=== PATIENT | male | born 1950 | race African-American/Black ===

== ENCOUNTER 2016-12-15 08:00 | Emergency (ER) | payer MEDICARE, BC ==
--- NOTE | 2016-12-15 08:23 | ERNOTE ---
Chest Pain/Cardiac HPI Date of Service: 12/15/16 Chief Complaint: Chest Pain Time Seen by Provider: 12/15/16 08:13 Source: patient Immunizations: IMMUNIZATION HX Immunizations Up to Date Yes History of Influenza Vaccine Yes Hx Pneumococcal Vaccination No Allergies/Adverse Reactions: Allergies No Known Allergies Allergy (Verified 12/15/16 08:08) Home Medications: HOME MEDICATIONS Calcium Acetate [Phoslo] 2,668 mg PO TID 10/27/15 [Last Taken Unknown] Clonidine HCl [Catapres] 0.3 mg PO BID 10/27/15 [Last Taken Unknown] Darbepoetin Bairon in Polysorbat [Aranesp] 25 mcg IV Q7D 10/27/15 [Last Taken Unknown] Amlodipine Besylate [Norvasc] 10 mg PO DAILY 06/17/16 [Last Taken Unknown] Clopidogrel Bisulfate [Plavix] 75 mg PO DAILY 12/15/16 [Last Taken Unknown] Narrative: CC = CHEST PAIN, ACHING , 6/10 TO RIGHT UPPER CENTRAL CHEST 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 HE THINKS IT IS FROM PROCEDURE HIS INSURANCE OFFICE MANAGER DID YESTERDAY AT [facility] WHERE HE HAD STUDY OF HIS GRAFT PATENCY BY A CATH THRU HIS RIGHT GROIN. NO SOB OR SWEATING. WHEN HE C/O CHEST DISCOMFORT THEY STOPPED HIS USUAL DIALYSIS AFTER 90 MINS AND CALLED EMS . HE DENIES HX OF HEART DISEASE OR DIABETES . SAYS HIS RENAL FAILURE WAS SECONDARY TO HYPERTENSION. FUIRTHER INFORMATION FROM THE PT . REVEALS HE THINKS HIS CHEST PAIN STARTED YESTERDAY AFTERNOON AFTER HE SAW DR SERNA IN [place] FOR THE ARTERIOGRAM OF HIS OLD RIGHT SIDED GRAFTS. HE DENIES KNOWN HEART OR LUNG DISEASE. Review of Systems - Review of Systems Constitutional: Present: See HPI Respiratory: Present: no symptoms reported Cardiology: Present: See HPI, chest pain Gastrointestinal/Abdominal: Present: no symptoms reported Genitourinary: Present: no symptoms reported Musculoskeletal: Present: no symptoms reported Skin: Present: no symptoms reported Neurological: Present: no symptoms reported Endocrine: Present: no symptoms reported Hematologic/Lymphatic: Present: no symptoms reported Psych: Present: no symptoms reported All Other Systems: All systems neg except as marked - Patient's Past Medical History Patient History - Medical: Renal Failure, Other Patient History - Cardiac/Respiratory: Hypertension Patient History - Cancer: No Hx of Cancer Patient History - Surgical Procedures: Other - THREE GRAFTS OVER THE PERIOD OF HIS DIALYSIS. Patient History - Other: None - Social History Living Situations: home Psych History: No pertinent hx Alcohol Use: none Drug Use: none - Immunizations Immunizations Up to Date: Yes Hx Pneumococcal Vaccination: No History of Influenza Vaccine: Yes Physical Exam - Physical Exam General Appearance: Present: wd/wn, alert, no apparent distress Respiratory: Present: no respiratory distress, normal breath sounds, no accessory muscle use, chest nontender, lungs clear Cardiovascular/Chest: Present: regular rate, rhythm, no murmur, normal peripheral pulses Gastrointestinal/Abdominal: Present: normal bowel sounds, nontender, nondistended, soft, no organomegaly Extremity Exam: Present: normal except - - RIGHT INGUINAL CATHETER SITE IS WELL HEALED WITH NO BLEEDING AND NO SITE OF BRUISING OR SWELLING. THE OLD DRESSING WAS REMOVED AND THERE WAS ONLY MINIMAL OLD BLOOD ON 2X2 OVER THE SITE. Neurological Exam: Present: alert, oriented, normal mood/affect Skin Exam: Present: normal color ED Progress - Date and Time Seen: Date and Time: 12/15/16 13:11 DISCUSSED PT WITH HIS SURGEON WHO DID HIS CATH YESTERDAY TO STUDY HIS GRAFT SITE AND HE SUGGESTED SINCE ALL ELSE WAS STABLE TO GET A CTA OF HIS CHEST TO SEE IF HE COULD HAVE A CLOT BREAK OFF TO THE LUNG. 12/15/16 15:55 CTA RESULTS WERE NEGATIVE FOR PULMONARY EMBOLUS OR OTHER ACUTE PROBLEM. HE IS NOTED TO HAVE TRACE BILATERAL PLEURAL EFFUSIONS AND MODERATE PERICARDIAL EFFUSION . - Vital Signs Vital Signs: Vital Signs 12/15/16 08:03 Temperature 36.8 C Pulse Rate 101 H Respiratory 23 H Rate Blood Pressure 85/62 O2 Sat by Pulse 97 Oximetry - Progress/Reassessment Chief Complaint: Chest Pain Plan - Plan Plan: I D/W HIS [facility] INSURANCE OFFICE MANAGER , DR BERRY, WHO SAYS HE CAN NOT ACCEPT PT TONIGHT HE IS NOT GOING TO BE AVAILABLE AFTER 1700 OR TOMORROW FOR DIALYSIS AND THAT NEAREST PLACE FOR HIS DIALYSIS TO BE DONE IS AT [facility]. I TALKED WITH DR MEDEIROS THERE WHO ACCEPTED PT. FOR ER TO ER TRANSFER. I EXPLAINED THIS TO THE PT. Departure - Departure Clinical Impression: Renal failure syndrome, Chest pain of uncertain etiology Disposition: [facility] Condition: Fair
[2016-12-15 08:30] LABS: Hematocrit 34.5 % (42.0-52.0); Hemoglobin 11.2 gm/dL (13.5-18.0); Mean Cell Volume 97.2 fl (78-100); Mean Corpuscular Hemoglobin 31.5 pg (27-31); Mean Corpuscular Hgb Conc 32.5 g/dl (32-36); Mean Platelet Volume 10.3 fl (6.0-9.5); Neutrophil # 5.9 K/mm3 (1.3-6.0); Neutrophil % 75.4 % (42-75.0); Platelet Count 169 K/mm3 (150-450); Red Blood Count 3.55 M/mm3 (4.7-6.0); Red Cell Distribution Width 15.8 % (11.5-14.0); White Blood Count 7.8 K/mm3 (4.0-10.5)
[2016-12-15 08:39] LABS: Prothrombin Time (Patient) 10.6 Seconds (9.4-11.4)
[2016-12-15 08:40] LABS: INR 1.02 INR (0.90-1.10); Partial Thrombolplastin Time 26.5 Seconds (24-32)
[2016-12-15 08:48] LABS: Albumin * 3.5 gm/dl (3.4-5.0); Anion Gap 14.7 mmol/L (6.8-13.8); BUN/Creatinine Ratio 4.8 (9.0-21.6); Bilirubin, Total 0.5 mg/dL (0.0-1.1); Calcium * 8.9 mg/dL (7.9-10.9); Carbon Dioxide 29.1 mmol/L (24-32.6); Potassium 5.8 mmol/L (3.4-4.6); Total Protein 7.6 gm/dL (6.2-8.2)
[2016-12-15 08:51] LABS: Troponin I 0.125 ng/ml (0.00-0.10)
--- OUTSIDE RECORDS SUMMARY | 2016-12-15 09:03 | XMS REPORT | Continuity of Care Document ---
:1950 Author Organization [facility] ([facility]) Address [address] [place] [address] Phone [phone] Care Team Providers Name Role Phone Provider, No-Primary Care Primary Care Provider Unavailable Source Comments This disclosure is being made pursuant to the Care Everywhere program, applicable federal and state laws, and may not contain all informaitonavailable regarding this patient.[facility] ([facility]) Active Allergies and Adverse Reactions No Active Allergies Current Medications Not on file Active Problems Problem Noted Date Other malaise and fatigue 12/10/2006 Fever 12/08/2006 Overview: problem dog warden replacement for go-live --MAL Other specified pre-operative examination 11/28/2005 End stage renal disease 11/28/2005 Social History Tobacco Use Types Packs/Day Years Used Date Never Assessed Last Filed Vital Signs Vital Sign Reading Time Taken Blood Pressure 113/67 12/12/2006 4:00 PM CDT Pulse 87 12/12/2006 4:00 PM CDT Temperature 36.1 C (96.98 F) 12/12/2006 4:00 PM CDT Respiratory Rate 18 12/12/2006 4:00 PM CDT Height 1.73 m (5' 8.11") 12/08/2006 5:06 PM CDT Weight 71.596 kg (157 lb 13.4 oz) 12/11/2006 8:00 PM CDT Body Mass Index 23.92 12/11/2006 8:00 PM CDT Oxygen Saturation - - Plan of Care Health Maintenance Due Date Last Done Comments Hepatitis B Vaccine (1 of 3 - Primary Series) 1950 Tdap Vaccine 1959 Lipid Disorder Screening 1966 Td Vaccine 1966 Colonoscopy 1998 Prostate Cancer Screening 1998 Zoster Vaccine 2008 Pneumococcal Vaccine (1 of 2 - PCV13) 2013 Influenza Vaccine: Seasonal (#1) 04/03/2016 HCV Screening Completed 12/08/2006 Results from Last 3 Months Not on file
[2016-12-15] MEDS ORDERED: ACETAMINOPHEN 325 MG TABLET PO ONE (13:46)
[2016-12-15] MEDS ORDERED: ACETAMINOPHEN 325 MG TABLET ONE (13:47)
[2016-12-15] MEDS ORDERED: ONDANSETRON HCL/PF 2 MG/ML VIAL IV ONE (14:48)
[2016-12-15] MEDS ORDERED: ONDANSETRON HCL/PF 2 MG/ML VIAL ONE (14:48)
[2016-12-15] MEDS ORDERED: NORMAL SALINE 1,000 ML IV ONE (15:27)
[2016-12-15 19:43] VITALS: BP 92/64
== END 2016-12-15 17:25 | disposition short-term general hospital (02) ==
LOC: ER 08:00
DX: N19 Unspecified kidney failure (principal); R07.9 Chest pain, unspecified

== ENCOUNTER 2017-01-13 12:42 | Emergency (ER) | payer MEDICARE, BC ==
--- NOTE | 2017-01-13 12:58 | ERNOTE ---
Dyspnea - Date Date of Service: 01/13/17 - General Time Seen by Provider: 01/13/17 12:57 Source: patient Exam Limitations: clinical condition - PT NOT A GOOD HISTORIAN. - Immun/Allergies/Home Medications Immunizations: IMMUNIZATION HX Immunizations Up to Date Yes History of Influenza Vaccine Yes Hx Pneumococcal Vaccination No Allergies/Adverse Reactions: Allergies No Known Allergies Allergy (Verified 01/13/17 12:54) Home Medications: HOME MEDICATIONS Calcium Acetate [Phoslo] 2,668 mg PO TID 10/27/15 [Last Taken Unknown] Darbepoetin Bairon in Polysorbat [Aranesp] 25 mcg IV Q7D 10/27/15 [Last Taken Unknown] Clopidogrel Bisulfate [Plavix] 75 mg PO DAILY 12/15/16 [Last Taken Unknown] Warfarin Sodium [Coumadin] 5 mg PO DAILY 01/13/17 [Last Taken Unknown] - History of Present Illness Narrative: CHEST DISCOMFORT AND RAPID HEART RATE STARTING ABOUT 0900 TODAY. DENIES PHX OF THE SAME. DENIES OTC MEDS,STIMULANTS, OR ILLEGAL DRUGS. SAYS HE WAS AT [facility] RECENTLY AND HAS A BLOOD CLOT IN HIS RIGHT ARM ( I TRANSFERRED HIM THERE) WHEN HE PRESENTED TO THE ER FROM DIALYSIS AFTER C/O CHEST PAIN WITH ELEVATION OF TROP., PROBABLY FORM HIS RENAL DISEASE , AND UNDER CARE OF A VASCULAR SURGEON IN [place] FOR KNOWN THROMBUS OF OLD GRAFT SITE. STATES HE JUST HAD DIALYSIS YESTERDAY IS NORMAL AND ALL MY LABS WERE "NORMAL". Review of Systems - Review of Systems Constitutional: Present: See HPI Respiratory: Present: shortness of breath Cardiology: Present: chest pain, palpitations All Other Systems: All systems neg except as marked - Patient's Past Medical History Patient History - Medical: Renal Failure, Other Patient History - Cardiac/Respiratory: Deep Vein Thrombosis, Hypertension, Myocardial Infarction Patient History - Cancer: No Hx of Cancer Patient History - Surgical Procedures: Other Patient History - Other: None - Social History Living Situations: home Psych History: No pertinent hx Smoking Status: Never smoker Alcohol Use: none Drug Use: none - Immunizations Immunizations Up to Date: Yes Hx Pneumococcal Vaccination: No History of Influenza Vaccine: Yes Physical Exam - Physical Exam General Appearance: Present: wd/wn, alert, mild distress Respiratory: Present: no respiratory distress, normal breath sounds, no accessory muscle use, lungs clear Cardiovascular/Chest: Present: tachycardia - REG ABOUT 150 /MIN. Extremity Exam: Present: no edema Neurological Exam: Present: alert, oriented ED Progress - Results and Orders Patient's Lab Results:: I have reviewed the patient's lab results. Results and Orders: PT LABS ARE AT HIS BASELINE WITH NL TSH. - Vital Signs Patient's Vital Signs:: I have reviewed the patient's vital signs. Vital Signs: Vital Signs 01/13/17 12:46 Temperature 36.6 C Pulse Rate 156 H Respiratory 14 Rate Blood Pressure 109/70 O2 Sat by Pulse 98 Oximetry - EKG EKG: supraventricular tachycardia EKG read: Interp. by me - a series of three ekg shows him improving to sinus tachycardia after three doses of adenocard - X-Ray X-Ray #1 X-Ray: chest Interpretation: Interp. by me - NO ACUTE CHANGE. - Progress/Reassessment Chief Complaint: Dyspnea Progress:: Improved - Transfer of Care Expected Disposition: Discharge Plan - Plan Plan: D/W DR SOLORZANO AND WILL DISCHARGE HIM HOME TO F/U WITH PCP IN [place]. HIS NORMAL BP IS TOO LOW TO NOW CONSIDER B BLOCKERS AND THIS IS HIS FIRST KNOWN EPISODE OF PSVT. Departure Clinical Impression: Paroxysmal SVT (supraventricular tachycardia) - Departure Disposition: Home Follow Up Needed Condition: Good Instructions: Paroxysmal Supraventricular Tachycardia, [id number] Additional Instructions: Continue your meds as before. Call your family doctor on Sunday to get in for a recheck. Return if worse. Your doctor may want you seen by a plate glass installer. Avoid any over the counter stimulants like decongestants and caffeine that can be in many sodas and "energy drinks" and of course coffee. Referrals: Remberto Scott DO [Primary Care Provider] -
[2017-01-13] MEDS ORDERED: ADENOSINE 3 MG/ML DISP.SYRIN IV ONE ×3 (13:16→13:47)
--- OUTSIDE RECORDS SUMMARY | 2017-01-13 13:24 | XMS REPORT | Continuity of Care Document ---
:1950 Author Organization [facility] ([facility]) Address [address] [place] [address] Phone [phone] Care Team Providers Name Role Phone Remberto Scott Primary Care Provider [phone] Source Comments This disclosure is being made pursuant to the Care Everywhere program, applicable federal and state laws, and may not contain all informaitonavailable regarding this patient.[facility] ([facility]) Active Allergies and Adverse Reactions No Known Allergies Current Medications Prescription Sig. Disp. Refills Start Date End Date Status clopidogrel 75 mg Take 75 mg by Active tablet mouth daily. calcium acetate 667 Take Active mg capsule 2,001-2,068 mg by mouth 3 times daily with meals. warfarin 5 mg Take 1 tablet 90 tablet 0 12/24/2016 Active tablet (5 mg total) by mouth every evening. amLODIPine 10 mg Take 10 mg by 12/16/2016 Discontinued tablet mouth daily. amLODIPine 5 mg Take 5 mg by 12/24/2016 Discontinued tablet mouth daily. 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 Krishan Landon Chief Comp: Patient Encounter Vascular MD Yudy Reported Reason For Visit 12/18/2016 [facility] Krishan Landon Chief Comp: Patient Encounter Vascular MD Yudy Reported Reason For Visit 12/18/2016 [facility] Krishan Landon Chief Comp: Patient Encounter Vascular MD Yudy Reported Reason For Visit 12/18/2016 [facility] Krishan Landon Chief Comp: Patient Encounter Vascular MD Yudy Reported Reason For Visit 12/18/2016 [facility] Krishan Landon Chief Comp: Patient Encounter Vascular MD Yudy Reported Reason For Visit 12/18/2016 [facility] Eliud Vasuqez Chief Comp: Patient Encounter Juju Jimenes MD Reported Reason For Visit 12/15/2016 - [facility] [place] [facility] Cricket Goddard MD Dx: Chest pain, 12/24/2016 Encounter Inpatient - Adult Judd Donald MD unspecified type Lukas Brock MD (Primary Dx) Abdoul Kapoor MD Joy, Parijat, MD Fatima, Urooj, MD Social History Tobacco Use Types Packs/Day Years Used Date Never Smoker Smokeless Tobacco: Never Used Alcohol Use Drinks/Week oz/Week Comments No Last Filed Vital Signs Vital Sign Reading Time Taken Blood Pressure 122/69 12/24/2016 7:42 AM CDT Pulse 81 12/24/2016 7:42 AM CDT Temperature 36 C (96.8 F) 12/24/2016 7:42 AM CDT Respiratory Rate 18 12/24/2016 7:42 AM CDT Height 1.829 m (6') 12/16/2016 1:00 AM CDT Weight 74.9 kg (165 lb 2 oz) 12/24/2016 6:00 AM CDT Body Mass Index 22.39 12/24/2016 6:00 AM CDT Oxygen Saturation 100% 12/24/2016 7:42 AM CDT Plan of Care Health Maintenance Due Date Last Done Comments Hepatitis B Vaccine (1 of 3 - Primary 1950 Series) Tdap Vaccine 1959 Td Vaccine 1966 Colonoscopy 1998 Prostate Cancer Screening 1998 Zoster Vaccine 2008 Pneumococcal Vaccine (1 of 2 - PCV13) 2013 Influenza Vaccine: Seasonal (Season Ended) 2017 Lipid Disorder Screening 12/18/2021 12/18/2016 HCV Screening Completed 12/15/2016, 12/08/2006 Results from Last 3 Months BASIC METABOLIC PANEL W/ CALCIUM (CHEM 8) (12/24/2016 7:02 AM)Only the most recent of9 resultswithin the time period is included. Component Value Range Sodium 137 135-145 mEq/L Potassium 5.4(H) 3.5-5.0 mEq/L Chloride 92(L) 95-107 mEq/L CO2 26 22-29 mEq/L BUN 72(H) 10-20 mg/dL Creatinine 12.8(H)Comment: 0.6-1.2 mg/dL Creatinine switched to enzymatic method on 01/10/2011.GFR equation switched to IDMS-traceable MDRD equation on 01/10/2011. Calculated GFR values are not valid in clinical settings where serum creatinine is changing. Glucose 96Comment: 65-99 mg/dL The Expert Committee on the Diagnosis and Classification of Diabetes has defined impaired fasting glucose as greater than or equal to 100 mg/dL but less than 126 mg/dL.(Diabetes Care 28 (Suppl 1)S41,2005) Calcium 10.4 8.5-10.5 mg/dL Anion Gap 19 mEq/L Calculated GFR 5(L) >60 mL/min/1.73 m2 Specimen Blood PT/INR (PROTHROMBIN TIME/INR) VENOUS (12/24/2016 7:02 AM)Only the most recent of7 resultswithin the time period is included. Component Value Range PT (Prothrombin Time) 21(H) 9-12 secs INR 2.1 <4.0 Specimen Blood PLATELET COUNT (12/24/2016 7:02 AM)Only the most recent of4 resultswithin the time period is included. Component Value Range Platelet Count 254 150-400 K/MM3 Specimen Whole Blood HEMOGLOBIN (12/24/2016 7:02 AM)Only the most recent of3 resultswithin the time period is included. Component Value Range Hemoglobin 10.7(L) 13.2-17.7 g/dL Specimen Whole Blood PTT (PARTIAL THROMBOPLASTIN TIME) (12/24/2016 7:02 AM)Only the most recent of12 resultswithin the time period is included. Component Value Range PTT 35(H) 22-31 secs Specimen Blood CBC (COMPLETE BLOOD COUNT) (12/23/2016 5:11 AM)Only the most recent of5 resultswithin the time period is included. Component Value Range WBC Count 6.4 3.7-10.5 K/MM3 RBC Count 3.25(L) 4.50-6.20 M/MM3 Hemoglobin 10.3(L) 13.2-17.7 g/dL Hematocrit 31(L) 40-52 % MCV (Mean Corpuscular Volume) 95 82-99 FL MCH (Mean Corpuscular Hemoglobin) 32 25-35 PG MCHC (Mean Corpuscular Hemoglobin Concentration) 33 32-36 % Platelet Count 219 150-400 K/MM3 MPV (Mean Platelet Volume) 10.0 9.4-12.3 FL RBC Dist Width-STD 53.1(H) 35.1-43.9 FL RBC Distrib Width 15.2(H) 9.0-14.5 % Nucleated RBC 0 /100 WBC Specimen Whole Blood MAGNESIUM (12/22/2016 6:50 AM)Only the most recent of5 resultswithin the time period is included. Component Value Range Magnesium 2.3 1.5-2.9 mg/dL Specimen Blood POTASSIUM (12/21/2016 1:31 PM) Component Value Range Potassium 4.7 3.5-5.0 mEq/L Specimen Blood ALPHA-FETOPROTEIN (12/20/2016 7:04 AM) Component Value Range AFP 4.5 0.0-9.0 ng/mL Specimen Blood IRON PANEL (IRON, TRANSFERRIN, TIBC AND % SATURATION) (12/20/2016 7:04 AM) Component Value Range Iron, Blood 65 59-158 g/dL Transferrin 116(L) 200-360 mg/dL Iron % Saturation 39Comment: 20-50 % Iron % saturation is a calculated parameter derived from the iron and transferrin plasma concentrations. Iron % saturation is not reliable when there are high ferritin concentrations greater than 1,200 ng/mL. TIBC (Total Iron Binding Capacity) 166(L)Comment: 250-425 g/dL TIBC is a calculated parameter derived from the transferrin plasma concentration. Specimen Blood FERRITIN (12/20/2016 7:04 AM) Component Value Range Ferritin 2488.0(H) 30.0-400.0 ng/mL Specimen Blood HEMOGLOBIN A1C (12/20/2016 7:04 AM) Component Value Range Hemoglobin A1c 5.5Comment: 4.8-6.0 % Glycemic Control Guidelines: Non-diabetic <6% Goal <7% Therapeutic Action >8% Estimated Average Glucose 111Comment: mg/dL The estimated average glucose (eAG) calculated from the HbA1c changed on 22/04.See Laboratory Bulletins in the Department of Pathology Laboratory Services Handbook for a full discussion.Not e that the new calculated glucose will now be lower.The A1c result is unchanged. Specimen Whole Blood NUC PHARM STRESS ECG& STAFF MD OR PA MONITORING ([id number]) (12/19/2016 10:27 AM) NUC MYOCARDIAL PERFUSION STRESS, SPECT ([id number]) (12/19/2016 10:27 AM) Impressions Impression: 1. The patient had chest pain but no significant electrocardiographic changes with regadenoson administration. 2. The regadenoson vasodilator perfusion images are considered to be normal. 3. The left ventricle is normal in size. The left ventricular ejection fraction is normal at 73%, with normal segmental wall motion. 4. This is a normal regadenoson vasodilator technetium tetrofosmin SPECT myocardial perfusion imaging study, indicating the likelihood of ischemia secondary to hemodynamically significant epicardial coronary artery disease in this patient is low. Narrative Procedure: NUC MYOCARDIAL PERFUSION STRESS, SPECT ([id number]) Indication: Chest pressure during dialysis and after vascular procedure , history of ESRD; 66 years old Male. Radiopharmaceutical and other administered agents: 1. Technetium-99m (Tc-99m) tetrofosmin stress 8.76 mCi IV in left antecubital fossa on 12/19/2016 at 0937 hrs. 2. Regadenoson 0.4 mg IV infusion at 0936 hrs. 3. Aminophylline 50 mg IV at 0939 hrs. Technique: Single Photon Emission Computed Tomography (SPECT) imaging of the chest was performed after radiopharmaceutical administration. Regadenoson was injected and stress dose was administered 30 sec thereafter. Soft tissue attenuation correction was accomplished with additional prone imaging. Reconstructed cardiac images were viewed in left ventricular (LV) short, vertical long, and horizontal long axis orientations. Prior exams: No relevant prior exams are available for comparison. Findings: No significant changes on stress EKG. After Regadenoson, patient reported shortness of breath, chest pressure, nausea, vomiting. Baseline heart rate of 92 bpm plateaued at 155 bpm. Blood pressure was 122/79 mm Hg Baseline. Stress images show homogenous distribution of radiotracer throughout the myocardium without evidence of perfusion abnormalities. ECG-gated images show no regional LV wall motion abnormalities. Left ventricular ejection fraction (LVEF) is 73% with an end-diastolic volume (LVEDV) of 41 mL post stress. Procedure Note Migue, Incoming Imaging Results - Tue Dec 19, 2016 2:22 PM CDT Procedure: NUC MYOCARDIAL PERFUSION STRESS, SPECT ([id number]) Indication: Chest pressure during dialysis and after vascular procedure , history of ESRD; 66 years old Male. Radiopharmaceutical and other administered agents: 1. Technetium-99m (Tc-99m) tetrofosmin stress 8.76 mCi IV in left antecubital fossa on 12/19/2016 at 0937 hrs. 2. Regadenoson 0.4 mg IV infusion at 0936 hrs. 3. Aminophylline 50 mg IV at 0939 hrs. Technique: Single Photon Emission Computed Tomography (SPECT) imaging of the chest was performed after radiopharmaceutical administration. Regadenoson was injected and stress dose was administered 30 sec thereafter. Soft tissue attenuation correction was accomplished with additional prone imaging. Reconstructed cardiac images were viewed in left ventricular (LV) short, vertical long, and horizontal long axis orientations. Prior exams: No relevant prior exams are available for comparison. Findings: No significant changes on stress EKG. After Regadenoson, patient reported shortness of breath, chest pressure, nausea, vomiting. Baseline heart rate of 92 bpm plateaued at 155 bpm. Blood pressure was 122/79 mm Hg Baseline. Stress images show homogenous distribution of radiotracer throughout the myocardium without evidence of perfusion abnormalities. ECG-gated images show no regional LV wall motion abnormalities. Left ventricular ejection fraction (LVEF) is 73% with an end-diastolic volume (LVEDV) of 41 mL post stress. IMPRESSION Impression: 1. The patient had chest pain but no significant electrocardiographic changes with regadenoson administration. 2. The regadenoson vasodilator perfusion images are considered to be normal. 3. The left ventricle is normal in size. The left ventricular ejection fraction is normal at 73%, with normal segmental wall motion. 4. This is a normal regadenoson vasodilator technetium tetrofosmin SPECT myocardial perfusion imaging study, indicating the likelihood of ischemia secondary to hemodynamically significant epicardial coronary artery disease in this patient is low. TROPONIN T (12/19/2016 4:40 AM)Only the most recent of5 resultswithin the time period is included. Component Value Range Troponin-T 0.15(H) <=0.10 ng/mL Specimen Blood US ABDOMEN LIMITED ([id number]) (12/18/2016 4:35 PM) Impressions Impression: 1. MULTIPLE LIVER CYSTS, SOME MILDLY SEPTATED. 2. 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 --- Final --- Narrative [facility] Department of Radiology Ultrasound Division [address] [place] [address] ULTRASOUND REPORT NAME:IRMA KAUR Date of Service: 12/18/2016 MRN NO.: [id number] Date: 12/18/2016 Patient's : 1950 Resident/Tech: /BRENDON Patient's Age: 66 yearsReferring MD:YESIKA ROY Indication: to evaluate for cystic lesion of the liver Technique: Liver grayscale ultrasound. Findings: Liver: +---------+ + +-------+ + :Size (cm):Echogenicity:Echotexture:Shape:Vascularity: +---------+ + +-------+ + :15.1 :Normal. :Normal.:Normal.:Normal.: +---------+ + +-------+ + +------+ + + + + -+ :Lesion:Location:Size (cm) :Shape/Margins:Echogenicity :Through : :::: : :Transmission : +------+ + + + + -+ :1 :Right lower.:3.2x3.1x2.6 cm:Irregular and:Anechoic,:Present. : :::: circumscribed. :complex and: : :::: :cyst.: : +------+ + + + + -+ :2 :Right lower.:1.1x1.0x1.3 cm:Oval and :Anechoic,:Present. : :::: circumscribed. :complex and: : :::: :cyst.: : +------+ + + + + -+ :3 :Right lower.:1.0x0.8x1.0 cm:Round and:Hyperechoic. : : :::: circumscribed. : : : +------+ + + + + -+ :4 :Left upper. :3.1x3.7x3.0 cm:Irregular and:Anechoic,:Present. : :::: circumscribed. :complex and: : :::: :cyst.: : +------+ + + + + -+ Procedure Note Migue, Incoming Imaging Results - SunDec 18, 2016 5:06 PM CDT [facility] Department of Radiology Ultrasound Division [address] [place] [address] ULTRASOUND REPORT NAME: IRMA KAUR Date of Service: 12/18/2016 MRN NO.: [id number] Review Date: 12/18/2016 Patient's : 1950 Resident/Tech: /BRENDON Patient's Age: 66 years Referring MD: YESIKA ROY Indication: to evaluate for cystic lesion of the liver Technique: Liver grayscale ultrasound. Findings: Liver: +---------+ + +-------+ + :Size (cm):Echogenicity:Echotexture:Shape :Vascularity: +---------+ + +-------+ + :15.1 :Normal. :Normal. :Normal.:Normal. : +---------+ + +-------+ + +------+ + + + + -+ :Lesion:Location :Size (cm) :Shape/Margins :Echogenicity :Through : : : : : ::Transmission : +------+ + + + + -+ : 1 :Right lower.:3.2x3.1x2.6 cm:Irregular and :Anechoic, :Present. : : : : :circumscribed. :complex and : : : : : : :cyst. : : +------+ + + + + -+ : 2 :Right lower.:1.1x1.0x1.3 cm:Oval and :Anechoic, :Present. : : : : :circumscribed. :complex and : : : : : : :cyst. : : +------+ + + + + -+ : 3 :Right lower.:1.0x0.8x1.0 cm:Round and :Hyperechoic. : : : : : :circumscribed. : : : +------+ + + + + -+ : 4 :Left upper. :3.1x3.7x3.0 cm:Irregular and :Anechoic, :Present. : : : : :circumscribed. :complex and : : : : : : :cyst. : : +------+ + + + + -+ IMPRESSION Impression: 1. MULTIPLE LIVER CYSTS, SOME MILDLY SEPTATED. 2. 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 --- Final --- EXTERNAL CT-STORE& INTERPRET (12/18/2016 2:57 PM) Impressions Impression: 1. No acute thrombi embolic disease. 2. mild pericardial effusion. No radiographic signs of tamponade. 3. Lack of opacification within the right brachiocephalic vein stent may correlated with the patient's history and further evaluated with Doppler. 3. Low-attenuation foci some with calcification are poorly evaluated on this exam. Correlation with ultrasound suggested. Narrative Outside film interpretation requested. Patient name: Irma Kaur. Exam was performed at 1432 hours on 12/15/2016 at [facility]. 313 images are provided and interpreted on the in-house PACS. Procedure: CT exam of the chest with IV contrast. Technique: Exam is performed with IV contrast and consists of axial slices of the chest with coronal reconstruction. Procedure: EXTERNAL CT-STORE & INTERPRET Clinical Indication:Shortness of breath, evaluate for PE, pericardial effusion, and patency of stents Comparison: None available Findings: Supraclavicular, axillary, mediastinal, hilar: No lymphadenopathy. Cardiovascular: No filling defects of the pulmonary arteries. There are left brachiocephalic and right brachiocephalic vein stents. The right brachiocephalic vein stent not opacified. However the contrast is seen coursing into the SVC adjacent to it. There is a small pericardial effusion. Heart is otherwise unremarkable. Scattered mild atherosclerotic calcifications throughout the thoracic and abdominal aorta. Abdomen: Multiple areas of hypodensity involving the bilateral hepatic lobes measuring up to 3.8 cm (5-1 09, 5-1 27) are incompletely visualized. Otherwise unremarkable. Lungs, airways, pleura: Bilateral dependent atelectasis. Lungs are otherwise clear. No pleural disease. Airways are clear. Chest wall, musculoskeletal: Unremarkable. Lines and tubes: None. Procedure Note Migue, Incoming Imaging Results - Joycelyn Dec 21, 2016 11:58 AM CDT Outside film interpretation requested. Patient name: Irma Kaur. Exam was performed at 1432 hours on 12/15/2016 at [facility]. 313 images are provided and interpreted on the in-house PACS. Procedure: CT exam of the chest with IV contrast. Technique: Exam is performed with IV contrast and consists of axial slices of the chest with coronal reconstruction. Procedure: EXTERNAL CT-STORE & INTERPRET Clinical Indication: Shortness of breath, evaluate for PE, pericardial effusion, and patency of stents Comparison: None available Findings: Supraclavicular, axillary, mediastinal, hilar: No lymphadenopathy. Cardiovascular: No filling defects of the pulmonary arteries. There are left brachiocephalic and right brachiocephalic vein stents. The right brachiocephalic vein stent not opacified. However the contrast is seen coursing into the SVC adjacent to it. There is a small pericardial effusion. Heart is otherwise unremarkable. Scattered mild atherosclerotic calcifications throughout the thoracic and abdominal aorta. Abdomen: Multiple areas of hypodensity involving the bilateral hepatic lobes measuring up to 3.8 cm (5-1 09, 5-1 27) are incompletely visualized. Otherwise unremarkable. Lungs, airways, pleura: Bilateral dependent atelectasis. Lungs are otherwise clear. No pleural disease. Airways are clear. Chest wall, musculoskeletal: Unremarkable. Lines and tubes: None. IMPRESSION Impression: 1. No acute thrombi embolic disease. 2. mild pericardial effusion. No radiographic signs of tamponade. 3. Lack of opacification within the right brachiocephalic vein stent may correlated with the patient's history and further evaluated with Doppler. 3. Low-attenuation foci some with calcification are poorly evaluated on this exam. Correlation with ultrasound suggested. VASC HEMODIALYSIS ACCESS DUPLEX (12/18/2016 2:07 PM) Component Value Range VASC PROX ANAST PSV 171 cm/sec VASC PROX ANAST PEDV 52 cm/sec VASC DIST ANAST PSV 135 cm/sec VASC DIST ANAST PEDV 41 cm/sec VASC AVF ANAST PSV 192 cm/sec VASC AVF ANAST PEDV 76 cm/sec VASC AVF 2CM PROX ANAST PSV 211 cm/sec VASC AVF 2CM PROX ANAST PEDV 67 cm/sec VASC LOCATION 1 Mid Graft VASC LOCATION 1 PSV 110 cm/sec VASC LOCATION 1 PEDV 39 cm/sec VASC LOCATION 2 Dis Graft VASC LOCATION 2 PSV 72 cm/sec VASC LOCATION 2 PEDV 32 cm/sec VASC LOCATION 3 Dis Anast VASC LOCATION 3 PSV 135 cm/sec VASC LOCATION 3 PEDV 59 cm/sec VASC MID UPPER ARM PSV 53 cm/sec VASC MID UPPER ARM PEDV 27 cm/sec VASC VOLUME FLOW 1 558 ml/min VASC VOLUME FLOW 2 558 ml/min VASC VOLUME FLOW 3 671 ml/min VASC VOLUME FLOW AVERAGE 596 ml/min VASC UPPER EXT VENOUS DUPLEX (UNILATERAL) (12/18/2016 2:05 PM)LIPID PANEL ( 9:52 AM) Component Value Range Specimen Type Fasting Cholesterol 153Comment: mg/dL Reference Range: Less than 200 mg/dL - desirable 200 - 240 mg/dL - increased risk Above 240 mg/dL - significant risk Triglycerides 94Comment: 0-150 mg/dL Reference Ranges: Normal:<150 mg/dL Borderline-high:150-199 mg/dL High: 200-499 mg/dL Very high: > rr=879 mg/dL HDL Cholesterol 60 >=41 mg/dL LDL - Calculated 74 <=130 mg/dL Non-HDL Cholesterol (Calc) 93 mg/dL Specimen Blood ECHO ADULT - ECHOCARDIOGRAM, TRANSTHORACIC (12/18/2016 8:43 AM) Component Value Range Interpretation Summary TRANSTHORACIC ECHOCARDIOGRAM 3 cm circular, cyst-like appearing structure in the liver.Suggest RUQ ultrasound or other imaging to followup Small pericardial effusion. Normal left ventricular systolic function. LV Ejection Fraction=67% (based on Biplane Method of Discs). Probably normal valves, for age.There is focal calcification on left coronary cusp leaflet. Patient Height (cm) 182.9 cm Patient Weight (kg) 78.5 kg Systolic Pressure (mmHg) 99 mmHg Diastolic Pressure (mmHg) 66 mmHg BSA (meters^2) 2.0 m^2 Left Ventricle (LV) Normal left ventricular size. Mild left ventricular hypertrophy. Normal left ventricular systolic function. LV Ejection Fraction=67% (based on Biplane Method of Discs). No obvious regional wall motion abnormalities noted but not all LV segments can be visualized. Right Ventricle (RV) Normal right ventricular size. Normal right ventricular systolic function. Left and Right Atria (LA, RA) Normal LA chamber size. Normal right atrial size. Mitral Valve (MV) Mildly calcified mitral annulus Echodensity on tip of anterior mitral leaflet, likely calcification/aging change. No mitral regurgitation Tricuspid Valve (TV) Normal tricuspid valve morphology No significant tricuspid regurgitation by color doppler Aortic Valve (AoV) No aortic regurgitation by color Doppler. Aortic valve sclerosis. focal calcification on left coronary cusp leaflet. No hemodynamically significant valvular aortic stenosis by doppler Pulmonic Valve (PV) No pulmonic valve stenosis by doppler No pulmonic valvular regurgitation by doppler Aorta and Pulmonary Artery (Ao, PA) The aortic root is normal size. Pericardium/Pleura Small pericardial effusion. Procedures Complete 2D with Doppler, Color Flow and image documentation ([id number]) Inf. Vena Cava (IVC) / Pulm. Veins The IVC size appears normal (Visual estimate). IVSd 1.2 cm LVIDd 3.9 cm LVIDs 2.3 cm LVPWd 1.2 cm IVS/LVPW 1.0 Ao root diam 2.3 cm Ao root area 4.2 cm^2 LA dimension 3.3 cm LA/Ao 1.4 LVOT diam 1.9 cm LVOT area 2.9 cm^2 LVAd ap4 21.7 cm^2 EF(MOD-sp4) 65.4 % MV E max watson 72.1 cm/sec MV A max watson 92.3 cm/sec MV E/A 0.78 Low Range of LVEF 67 High Range of LVEF 67 Reason For Study Eval structure and function Clearing House Clerk Sue Anand Interpreting Physician Eliud Vasquez MD electronically signed on 2016-12-18 09:20:56.6 CHEST- PA& LATERAL (12/17/2016 1:59 PM) Impressions Findings / Impression: The cardiac silhouette is stable without definite evidence of large pericardial effusion. However, if there is continued concern for pericardial effusion, echocardiography is more sensitive. Mildly increased right basilar consolidation, likely representing atelectasis. However, if there are infectious symptoms, this could represent developing pneumonia. No pneumothorax. Likely small right pleural effusion. Stable venous stents. Stable shunt-like vascular material in the left upper extremity. Narrative Procedure: CHEST- PA & LATERAL Clinical Indication: Evaluate for pericardial effusion Comparison: 12/15/2016 Procedure Note Migue, Incoming Imaging Results - Muriel Dec 17, 2016 2:34 PM CDT Procedure: CHEST- PA & LATERAL Clinical Indication: Evaluate for pericardial effusion Comparison: 12/15/2016 IMPRESSION Findings / Impression: The cardiac silhouette is stable without definite evidence of large pericardial effusion. However, if there is continued concern for pericardial effusion, echocardiography is more sensitive. Mildly increased right basilar consolidation, likely representing atelectasis. However, if there are infectious symptoms, this could represent developing pneumonia. No pneumothorax. Likely small right pleural effusion. Stable venous stents. Stable shunt-like vascular material in the left upper extremity. ECG - EKG 12 LEAD (12/17/2016 11:49 AM)Only the most recent of3 resultswithin the time period is included. Component Value Range ECG SEVERITY - ABNORMAL ECG - VENT. RATE 92 bpm RR 652 ms P-R INTERVAL 208 ms QRSD INTERVAL 68 ms QT INTERVAL 352 ms QTC INTERVAL 436 ms P AXIS 54 degrees QRS AXIS -2 degrees T WAVE AXIS 88 degrees REPORT SINUS RHYTHM NONSPECIFIC T ABNORMALITIES, LATERAL LEADS ST ELEVATION SUGGESTS PERICARDITIS Interpreting Physician: Adis Caraballo MD PHOSPHORUS (12/17/2016 10:11 AM)Only the most recent of2 resultswithin the time period is included. Component Value Range Phosphorus 4.6(H)Comment:New reference range installed 06/15/15. 2.5-4.5 mg/ dL Specimen Blood POTASSIUM ([facility]) (12/16/2016 9:11 PM) Component Value Range Potassium, Whole Blood 4.2Comment: 3.5-5.0 mEq/L Sample run on whole blood.Hemolysis is not measured. Specimen Whole Blood BLOOD CULTURE (12/16/2016 3:48 PM)Only the most recent of2 resultswithin the time period is included. Component Value Range Blood Culture No Growth Specimen Blood - Blood, Venipuncture DIFFERENTIAL (12/16/2016 10:45 AM)Only the most recent of2 resultswithin the time period is included. Component Value Range % Neutrophils-Auto Diff 72.8 % Neutrophils-Auto Diff 6590 4749-3344 /MM3 % Lymphocytes-Auto Diff 10.8 % Lymphocytes-Auto Diff 191 667-0072 /MM3 % Monocytes-Auto Diff 13.8 % Monocytes-Auto Diff 1250(H) 130-860 /MM3 % Eosinophils-Auto Diff 1.8 % Eosinophils-Auto Diff 160 40-390 /MM3 % Basophils 0.2 % Basophils-Auto Diff 20 10-136 /MM3 % Immature Granulocytes-Auto Diff 0.6 % Immature Granulocytes-Auto Diff 50 /MM3 Specimen Whole Blood CBC (COMPLETE BLOOD COUNT) (12/16/2016 10:45 AM)Only the most recent of2 resultswithin the time period is included. Component Value Range WBC Count 9.1 3.7-10.5 K/MM3 RBC Count 3.29(L) 4.50-6.20 M/MM3 Hemoglobin 10.4(L) 13.2-17.7 g/dL Hematocrit 31(L) 40-52 % MCV (Mean Corpuscular Volume) 95 82-99 FL MCH (Mean Corpuscular Hemoglobin) 32 25-35 PG MCHC (Mean Corpuscular Hemoglobin Concentration) 33 32-36 % Platelet Count 144(L) 150-400 K/MM3 MPV (Mean Platelet Volume) 10.5 9.4-12.3 FL RBC Dist Width-STD 55.6(H) 35.1-43.9 FL RBC Distrib Width 15.9(H) 9.0-14.5 % Nucleated RBC 0 /100 WBC Specimen Whole Blood CBC WITH DIFFERENTIAL (12/16/2016 10:45 AM)Only the most recent of2 resultswithin the time period is included. Specimen Whole Blood Narrative The following orders were created for panel order CBC WITH DIFFERENTIAL. Procedure Abnormality Status --------- ------ CBC (COMPLETE BLOOD COUNT)[[id number]] AbnormalFinal result DIFFERENTIAL[[id number]] AbnormalFinal result Please view results for these tests on the individual orders. CHEST - AP/PA (12/15/2016 11:07 PM) Impressions Findings/impression: Metallic venous stents are projected over the upper mediastinum. No pneumothorax. No pleural effusion. Bilateral low lung volume is likely related to poor inspiratory effort. Bibasal subsegmental patchy airspace disease. Exaggerated heart size due to low lung volume portable technique. Findings are better characterized on the outside CT. please correlate with that report. Narrative Procedure: CHEST - AP/PA Technique: Portable AP chest radiograph Comparison: Chest radiograph(s) dated: 12/08/[address] 12/15/2013. Clinical Indication: Chest pain Procedure Note Migue, Incoming Imaging Results - SunDec 15, 2016 11:24 PM CDT Procedure: CHEST - AP/PA Technique: Portable AP chest radiograph Comparison: Chest radiograph(s) dated: 12/08/[address] 12/15/2013. Clinical Indication: Chest pain IMPRESSION Findings/impression: Metallic venous stents are projected over the upper mediastinum. No pneumothorax. No pleural effusion. Bilateral low lung volume is likely related to poor inspiratory effort. Bibasal subsegmental patchy airspace disease. Exaggerated heart size due to low lung volume portable technique. Findings are better characterized on the outside CT. please correlate with that report. EXTRA BLUE TUBE (12/15/2016 10:35 PM) Component Value Range Extra Blue Tube Store Specimen Blood HEPATITIS C ANTIBODY (12/15/2016 10:33 PM) Component Value Range Hepatitis C Virus Antibody Negative Negative Specimen Blood HEPATITIS B CORE ANTIBODY(G&M) (12/15/2016 10:33 PM) Component Value Range Hep B Core Abs Total (IgG & IgM) Negative Negative Specimen Blood HEPATITIS B SURFACE ANTIGEN (12/15/2016 10:33 PM) Component Value Range Hep B Surface Antigen Negative Negative Specimen Blood HEPATITIS B SURFACE ANTIBODY (12/15/2016 10:33 PM) Component Value Range Hep B Surface Ab, Quantitative 13.1 mIU/mL Hep B Surface Ab, Qualitative Reactive Reactive Hep B Surface Ab, Immune Status ImmuneComment: Immune Hepatitis B surface antibody can be formed following hepatitis B infection or after hepatitis B vaccination. A reactive result is consistent with immune status to hepatitis B. Non-reactive results fla g as abnormal in Epic which indicates non-immune status to hepatitis B. A non -reactive result does NOT imply hepatitis B infection. If ordered in workup of possible hepatitis B infection, hepatitis B surface antibody results should be interpreted in conjunction with other laboratory tests (e.g., hepatitis B surface antigen), clinical history, and physical examination. Reference range: Reactive (immune): 11.5 mIU/mL or greater Indeterminate (indeterminate immune status): 8.5 to 11.4 mIU/mL Non-reactive (non-immune): Less than 8.5 mIU/mL Specimen Blood COMPREHENSIVE METABOLIC PANEL (CMP) (12/15/2016 10:33 PM) Component Value Range Sodium 137 135-145 mEq/L Potassium 6.3(HH) 3.5-5.0 mEq/L Chloride 95 95-107 mEq/L CO2 23 22-29 mEq/L BUN 57(H) 10-20 mg/dL Creatinine 11.3(H)Comment: 0.6-1.2 mg/dL Creatinine switched to enzymatic method on 01/10/2011.GFR equation switched to IDMS-traceable MDRD equation on 01/10/2011. Calculated GFR values are not valid in clinical settings where serum creatinine is changing. Glucose 117(H)Comment: 65-99 mg/dL The Expert Committee on the Diagnosis and Classification of Diabetes has defined impaired fasting glucose as greater than or equal to 100 mg/dL but less than 126 mg/dL.(Diabetes Care 28 (Suppl 1)S41,2005) Calcium 8.5 8.5-10.5 mg/dL Total Protein 7.1 6.0-8.0 g/dL Albumin 3.7 3.4-4.8 g/dL AST 17Comment: 0-40 U/L Adult reference ranges updated on 07/29/13 at 830am ALP 40 40-129 U/L Bilirubin Total 0.4 <=1.2 mg/dL ALT 11Comment: 0-41 U/L The upper limit of normal for alanine aminotransferase (ALT) reference ranges for adults is controversial with some authorities recommending limit as low as 30 U/L for males and 19 U/L for females. Th ere is increased incidence of subclinical liver disease (e.g., early steatohepatitis) in patients with ALT values in the range of 31-41 U/L for males and 20-33 U/L for females. ALT values should alway s be interpreted in conjunction with clinical history, physical examination findings, and, if applicable, data from other diagnostic tests. Anion Gap 19 mEq/L Calculated GFR 5(L) >60 mL/min/1.73 m2 Specimen Blood
[2017-01-13 13:25] LABS: Hematocrit 33.1 % (42.0-52.0); Hemoglobin 10.7 gm/dL (13.5-18.0); Mean Cell Volume 98.2 fl (78-100); Mean Corpuscular Hemoglobin 31.8 pg (27-31); Mean Corpuscular Hgb Conc 32.3 g/dl (32-36); Neutrophil # 3.4 K/mm3 (1.3-6.0); Neutrophil % 52.7 % (42-75.0); Platelet Count 181 K/mm3 (150-450); Red Blood Count 3.37 M/mm3 (4.7-6.0); Red Cell Distribution Width 15.8 % (11.5-14.0); White Blood Count 6.5 K/mm3 (4.0-10.5)
[2017-01-13 13:40] LABS: INR 2.63 INR (0.90-1.10); Prothrombin Time (Patient) 27.4 Seconds (9.4-11.4)
[2017-01-13 13:45] LABS: Troponin I Less than 0.017 ng/ml (0.00-0.10)
[2017-01-13 13:48] LABS: ALT 9 U/L (19-67); AST 22 U/L (0-48); Alkaline Phosphatase * 50 U/L (50-170); Anion Gap 20.7 mmol/L (6.8-13.8); BUN/Creatinine Ratio 5.2 (9.0-21.6); Bilirubin, Total 0.5 mg/dL (0.0-1.1); Blood Urea Nitrogen 49 mg/dL (6-23); Ca. Corrected For Albumin 9.3 mg/dL (8.4-10.2); Calcium * 8.8 mg/dL (7.9-10.9); Carbon Dioxide 24.9 mmol/L (24-32.6); Chloride 101 mmol/L (97-106); Glucose * 127 mg/dL (70-110); Potassium 4.6 mmol/L (3.4-4.6); Sodium 142 mmol/L (132-142); TSH * 0.986 uIU/mL (0.358-3.74)
[2017-01-13] MEDS ORDERED: LABETALOL HCL 5 MG/ML VIAL IV ONE (14:19)
[2017-01-13 15:39] VITALS: BP 107/74
== END 2017-01-13 16:10 | disposition home or self-care (01) ==
LOC: ER 12:42
DX: I47.1 Supraventricular tachycardia (principal); Z86.718 Personal history of other venous thrombosis and embolism; Z79.01 Long term (current) use of anticoagulants; I10 Essential (primary) hypertension; N19 Unspecified kidney failure

== ENCOUNTER 2017-01-14 21:46 | Emergency (ER) | payer MEDICARE, BC ==
--- OUTSIDE RECORDS SUMMARY | 2017-01-14 21:56 | XMS REPORT | Continuity of Care Document ---
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 --MAL Other specified pre-operative examination 11/28/2005 End stage renal disease 11/28/2005 Most Recent Encounters Date Type Specialty Providers Description 12/25/2016 Nurse Triage General Care Mary Cuba, Chief Comp: IP Inpatient - 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 Follow-up Call 12/22/2016 Telephone General Care Mary Cuba, Chief Comp: Inpatient - Adult RN Anticoagulation 12/19/2016 [facility] and Marquise Burton, Chief Comp: Patient Encounter Vascular Reported Reason For Visit 12/18/2016 [facility] Krishan Landon Chief Comp: Patient Encounter Vascular MD Yudy Reported Reason For Visit 12/18/2016 [facility] Krishan Landon Chief Comp: Patient Encounter Vascular MD Yudy Reported Reason For Visit 12/18/2016 [facility] Krishan Landon Chief Comp: Patient Encounter Vascular MD Yudy Reported Reason For Visit 12/18/2016 [facility] Krishan Landon Chief Comp: Patient Encounter Vascular MD Yudy Reported Reason For Visit 12/18/2016 [facility] Krishan Landon Chief Comp: Patient Encounter Vascular MD Yudy Reported Reason For Visit 12/18/2016 [facility] Eliud Vasquez Chief Comp: Patient Encounter Juju Jimenes MD Reported Reason For Visit 12/15/2016 - [facility] Cricket Goddard MD Dx: Chest pain, 12/24/2016 [...] STRESS ECG& STAFF MD OR PA MONITORING ([id number]) (12/19/2016 10:27 AM) NUC MYOCARDIAL PERFUSION STRESS, SPECT ([id number]) (12/19/2016 10:27 AM) Impressions Impression: 1. The [...] Narrative Procedure: NUC MYOCARDIAL PERFUSION STRESS, SPECT ([id number]) Indication: Chest pressure during dialysis and after [...] CDT Procedure: NUC MYOCARDIAL PERFUSION STRESS, SPECT ([id number]) Indication: Chest pressure during dialysis and after [...] <=0.10 ng/mL Specimen Blood US ABDOMEN LIMITED ([id number]) (12/18/2016 4:35 PM) Impressions Impression: 1. MULTIPLE LIVER CYSTS, SOME MILDLY SEPTATED. 2. 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 --- Final --- Narrative [facility] Department of Radiology Ultrasound Division [address] [place] [address] ULTRASOUND REPORT NAME:IRMA KAUR Date of Service: 12/18/2016 MRN NO.: [id number] Date: 12/18/2016 Patient's : 1950 Resident/Tech: /BRENDON [...] - SunDec 18, 2016 5:06 PM CDT [facility] Department of Radiology Ultrasound Division [address] [place] [address] ULTRASOUND REPORT NAME: IRMA KAUR Date of Service: 12/18/2016 MRN NO.: [id number] Review Date: 12/18/2016 Patient's : 1950 Resident/Tech: [...] performed at 1432 hours on 12/15/2016 at [facility]. 313 images are provided and interpreted [...] performed at 1432 hours on 12/15/2016 at [facility]. 313 images are provided and interpreted [...] mg/dL High: 200-499 mg/dL Very high: > va=555 mg/dL HDL Cholesterol 60 >=41 mg/dL LDL [...] with Doppler, Color Flow and image documentation ([id number]) Inf. Vena Cava (IVC) / Pulm. Veins [...] Reason For Study Eval structure and function Youth Manager Sue Anand Interpreting Physician Eliud Vasquez MD [...] Neutrophils-Auto Diff 72.8 % Neutrophils-Auto Diff 6590 [id number] /MM3 % Lymphocytes-Auto Diff 10.8 % Lymphocytes-Auto Diff 169 567-5542 /MM3 % Monocytes-Auto Diff 13.8 % Monocytes-Auto [...] Abnormality Status --------- ------ CBC (COMPLETE BLOOD COUNT)[[id number]] AbnormalFinal result DIFFERENTIAL[[id number]] AbnormalFinal result Please view results for these [...]
[2017-01-14] MEDS ORDERED: METOPROLOL TARTRATE 1 MG/ML AMPUL IV ONE ×2 (22:11)
[2017-01-14] MEDS ORDERED: NORMAL SALINE 1,000 ML IV ONE (22:23)
--- NOTE | 2017-01-14 22:42 | ERNOTE ---
Chest Pain/Cardiac HPI Chief Complaint: Palpitations Time Seen by Provider: 01/14/17 21:49 Source: patient Exam Limitations: no limitations Immunizations: IMMUNIZATION HX Immunizations Up to Date Yes History of Influenza Vaccine Yes Hx Pneumococcal Vaccination No Allergies/Adverse Reactions: Allergies No Known Allergies Allergy (Verified 01/14/17 21:58) Home Medications: HOME MEDICATIONS Calcium Acetate [Phoslo] 2,668 mg PO TID 10/27/15 [Last Taken Unknown] Darbepoetin Bairon in Polysorbat [Aranesp] 25 mcg IV Q7D 10/27/15 [Last Taken Unknown] Clopidogrel Bisulfate [Plavix] 75 mg PO DAILY 12/15/16 [Last Taken Unknown] Warfarin Sodium [Coumadin] 5 mg PO DAILY 01/13/17 [Last Taken Unknown] Metoprolol Succinate 25 mg PO DAILY #20 tab.er.24h 01/14/17 [Last Taken Unknown] Narrative: Patient returns to our emergency room for rapid heart rate. He states he has some chest discomfort but no pain. There is no referred pain. He does not have any shortness of breath. He is not dizzy. He does not feel as if he is going to pass out. He had a similar episode yesterday for which he presented to the [facility] ER and was worked up. Review of Systems - Review of Systems Constitutional: Present: no symptoms reported EYE: Present: no symptoms reported ENT: Present: no symptoms reported Respiratory: Present: no symptoms reported Cardiology: Present: See HPI Gastrointestinal/Abdominal: Present: no symptoms reported Genitourinary: Present: no symptoms reported Musculoskeletal: Present: no symptoms reported Skin: Present: no symptoms reported - Patient's Past Medical History Patient History - Medical: Renal Failure, Other Patient History - Cardiac/Respiratory: Deep Vein Thrombosis, Hypertension, Myocardial Infarction Patient History - Cancer: No Hx of Cancer Patient History - Surgical Procedures: Other Patient History - Other: None - Social History Living Situations: home Psych History: No pertinent hx Alcohol Use: none Drug Use: none - Immunizations Immunizations Up to Date: Yes Hx Pneumococcal Vaccination: No History of Influenza Vaccine: Yes Physical Exam - Physical Exam General Appearance: Present: wd/wn, alert, no apparent distress Ears, Nose, Throat: Present: normal ENT inspection Neck: Present: normal inspection, nontender Respiratory: Present: no respiratory distress, normal breath sounds, no accessory muscle use, chest nontender, lungs clear Cardiovascular/Chest: Present: regular rate, rhythm, other - patient has a pulse of 144 the rate is regular no ST or T changes ED Progress - Vital Signs Patient's Vital Signs:: I have reviewed the patient's vital signs. - also patient's test results were reviewed from yesterday I suggested getting a urine drug screen however the patient refused Vital Signs: Vital Signs 01/14/17 01/14/17 01/14/17 21:55 22:09 22:17 Temperature 36.8 C Pulse Rate 139 H 143 H 138 H Respiratory 14 16 Rate Blood Pressure 118/81 118/81 132/87 O2 Sat by Pulse 100 96 Oximetry 01/14/17 22:25 Temperature Pulse Rate 119 H Respiratory 13 Rate Blood Pressure 99/70 O2 Sat by Pulse 99 Oximetry - Progress/Reassessment Chief Complaint: Palpitations Plan - Plan Plan: This patient has paroxysmal supraventricular tachycardia. Following Lopressor 5 mg IV the patient's pulse decreased to 92/m and regular. 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 Departure - Departure Clinical Impression: Paroxysmal supraventricular tachycardia Disposition: Home self-care Condition: Good Instructions: Paroxysmal Supraventricular Tachycardia Referrals: Remberto Scott DO [Primary Care Provider] - Prescriptions: Metoprolol Succinate 25 mg PO DAILY #20 tab.er.24h
[2017-01-15 00:04] VITALS: BP 131/88
== END 2017-01-14 23:21 | disposition home or self-care (01) ==
LOC: ER 21:46
DX: I47.1 Supraventricular tachycardia (principal); I10 Essential (primary) hypertension; I25.2 Old myocardial infarction; I82.409 Acute embolism and thrombosis of unspecified deep veins of unspecified lower extremity